=== PATIENT | female | born 1935 | race Caucasian/White ===

== ENCOUNTER 2016-05-29 12:06 | Observation (INO) | payer OTHER, MEDICARE ==
[~2016-05-29] VITALS: Ht 167.6 cm; Wt 89.8 kg
[~2016-05-29 12:06] MED LIST: CALCIUM GLUCON500 MG PO; CARDIZEM CD240 MG PO; CENTRUM SILVER1 TA1 PO; CEPHALEXIN500 M1 PO; DILTIAZEM HCL120 M2 PO; FERROUS SULFAT325 M3 PO; FLAGYL 25O MG250 M1 PO; FUROSEMIDE20 MG PO; KLOR-CON M1010 ME1 PO; LASIX40 M1 PO; LOPRESSOR100 M1 PO; MAG-OX 400400 MG PO; MAGNESIUM500 M2 PO; PERCOCET 325 MG1 TA2 PO; PROBIOTIC FORMU1 CAP PO; TEKTURNA HCT 151 TAB PO; TYLENOL TAB 32325 MG PO; VITAMIN D31000 UNI1 PO; XARELTO20 M2 PO
--- NOTE | 2016-05-29 12:27 | ED CARDIAC/CP/PALPITATIONS ---
History of Present Illness General Chief Complaint: Palpitations Stated Complaint: PALPATATIONS Source: patient, old records Exam Limitations: no limitations Vital Signs & Intake/Output Vital Signs & Intake/Output Vital Signs Date Time Temp Pulse Resp B/P Pulse O2 O2 Flow FiO2 Ox Delivery Rate 05/29 1430 96.3 05/29 1425 94 18 156/73 96 Room Air 05/29 1231 97 18 145/88 98 Room Air 05/29 1211 98.7 98 20 159/109 97 Room Air Reconcile Medications Cholecalciferol (Vitamin D3) 1,000 IU TAB 1 TAB PO DAILY SUPPLEMENT (Reported ) DILTIAZEM HCL (Cardizem Cd) 240 MG CAP.ER.24H 1 CAP PO DAILY A. FIB Ferrous Sulfate 325 MG (65 MG IRON) TABLET 1 TAB PO DAILY SUPPLEMENT ( Reported) Furosemide (Lasix) 40 MG TABLET 1 TAB PO DAILY ANKLE SWELLING (Reported) Magnesium Oxide 500 MG TABLET 1 TAB PO DAILY SUPPLEMENT (Reported) Metoprolol Tartrate 100 MG TABLET 1 TAB PO BID BP (Reported) OXYCODONE HCL/ACETAMINOPHEN (Percocet 5-325 MG Tablet) 325 MG/5 MG TAB 1-2 TAB PO Q4P PRN PAIN Potassium Chloride (Klor-Con M10) 10 MEQ TAB.ER.PRT 1 TAB PO DAILY SUPPLEMENT (Reported) Rivaroxaban (Xarelto) 20 MG TABLET 1 TAB PO QPM BLOOD THINNER (Reported) with food Triage Note: RECEIVED 81 YO FEMALE C/O FEELING TWINGES TO MID STERANL CHEST AREA. PT ALSO FEELS HEART IS BEATING FAST.PT WITH HX OF AFIB, HR 100 IN TRIAGE. SENSATION IS NOT PAIN, BUT NEVER FELT THIS FEELING OF TWINGES BEFORE. NO C/O SOB Triage Nurses Notes Reviewed? yes Onset: Abrupt Duration: intermittent Timing: multiple episodes today Quality/Severity: mild Location: substernal Radiation: no radiation Activities at Onset: none HPI: Patient is an 81-year-old female with a past medical history of diverticulitis status post perforation and Emily procedure correction with colostomy reversal performed remotely by Best Gonzales MD, hypertension, atrial fibrillation ON XARELTO who is compliant with her medications who presents emergency and that while at rest last night in bed at approximately 2300 she had acute onset of substernal chest intermittent discomfort which has come and gone which she states that it lasts for a few seconds but has been still occurring. Patient has never had symptoms like this in the past. Denies any fever, chills, hemoptysis shortness of breath cough leg swelling nausea vomiting abdominal pain back pain arm pain jaw pain diaphoresis. Patient has not taken any medications for symptoms. (SHUBHAM GUTIERREZ) Allergies Coded Allergies: NSAIDS (Non-Steroidal Anti-Inflamma ("SPOTTING" 05/29/16) Sulfa (Sulfonamide Antibiotics) (RASH 05/29/16) aspirin (SPOTTING 05/29/16) carbidopa (From Sinemet) (FACE SWELLS 05/29/16) gabapentin (UNKNOWN 05/29/16) levodopa (From Sinemet) (FACE SWELLS 05/29/16) (CATHY AHUJA MD) Past History Travel History Traveled to [place] past 21 day No Medical History Any Pertinent Medical History? see below for history Neurological: NONE EENT: NONE Cardiovascular: AFIB, hypertension Respiratory: NONE Gastrointestinal: GERD Hepatic: NONE Renal: NONE Musculoskeletal: NONE Psychiatric: NONE Endocrine: NONE History of MRSA: No History of VRE: No History of CDIFF: No Pneumonia Vaccine: 01/17/04 Influenza Vaccine: 12/17/13 Surgical History Surgical History: non-contributory Psychosocial History Who do you live with Patient/Self Services at Home None What is your primary language Greenlandic Tobacco Use: Never used Family History Family History, If Any: MOTHER, ; Cause: COPD (chronic obstructive pulmonary disease). FATHER, . Hx Contributory? No (SHUBHAM GUTIERREZ) Review of Systems Review of Systems Constitutional: Reports: no symptoms. EENTM: Reports: no symptoms. Respiratory: Reports: see HPI. Cardiovascular: Reports: see HPI, chest pain. GI: Reports: no symptoms. Genitourinary: Reports: no symptoms. Musculoskeletal: Reports: no symptoms. Skin: Reports: no symptoms. Neurological/Psychological: Reports: no symptoms. Hematologic/Endocrine: Reports: no symptoms. Immunologic/Allergic: Reports: no symptoms. All Other Systems: Reviewed and Negative (SHUBHAM GUTIERREZ) Physical Exam Physical Exam General Appearance: no apparent distress, alert Cardiovascular: irregularly irregular Comments: HEENT: Normal EENT exam, . Neck: Supple, no lymphadenopathy, normal range of motion without pain or tenderness Back: Nontender, no CVA tenderness. Respiratory: Chest nontender. No respiratory distress.breath sounds clear to auscultation bilaterally Abdomen: Soft, nontender nondistended, no appreciable organomegaly. Normal bowel sounds. No ascites Extremity: No edema, no calf tenderness to palpation, normal and equal pulses. Neuro: Alert oriented x3, motor sensory normal Skin: No appreciable rash on exposed skin, skin is warm and dry. Psych: Mood and affect is normal, memory and judgment is normal. Core Measures ACS in differential dx? Yes ASA ordered for poss ACS? Yes-ordered Severe Sepsis Present: No Septic Shock Present: No (ARPITA HAIR,SHUBHAM) Progress Differential Diagnosis: AMI, aortic dissection, atrial fibrillation, cholecystitis, CHF/pulm edema, hyperkalemia, hypovolemia, hyperthyroid, hyperventilation, intracranial hemorrhage, musculoskeletal pain, myocarditis, pancreatitis, pericarditis, pneumonia, pneumothorax, PSVT, pulmonary embolism, PUD/GERD, PVCs/PACs, respiratory failure, rib fracture, sepsis, unstable angina, V-fib/V-Tach, WPW syndrome Plan of Care: Orders Procedure Date/time Status EKG 05/30 2200 Active CBC WITHOUT DIFFERENTIAL 05/30 0600 Active BASIC ELECTROLYTES PLUS BUN&CR 05/30 0600 Active Heart Healthy Diet 05/29 D Active TROPONIN LEVEL 05/29 1553 Active Pathway - chart 05/29 1545 Active Patient Data 05/29 1545 Active TROPONIN LEVEL 05/29 1545 Active Patient Data 05/[address] in observation 05/29 1509 Active Patient Data 05/29 1509 Active OXYGEN SETUP (GEN) 05/29 1428 Active Saline Lock 05/[address] in observation 05/29 1428 Active Vital Signs 05/29 1428 Active Activity/Ambulation 05/29 1428 Active Code Status 05/29 1428 Active Telemetry/Tissue Technician 05/29 1239 Active TROPONIN LEVEL 05/29 1239 Complete MAGNESIUM 05/29 1239 Complete D-DIMER 05/29 1239 Complete COMPREHENSIVE METABOLIC PANEL 05/29 1239 Complete CBC WITHOUT DIFFERENTIAL 05/29 1239 Complete EKG 05/29 1215 Active Saline Lock 05/29 UNK Active Pathway - chart 05/29 UNK Active House Staff 05/29 UNK Active ACS Core Measures 05/29 UNK Active Weight 05/29 UNK Active VTE Mechanical Prophylaxis 05/29 UNK Active Vital Signs 05/29 UNK Active Telemetry/Tissue Technician 05/29 UNK Active Intake & Output 05/29 UNK Active EKG 05/29 UNK Active ECHOCARDIOGRAM 05/29 UNK Active Current Medications Sig/Danisha Start time Last Medication Dose Stop Time Status Admin Multivitamins 1 TAB DAILY 05/30 1000 AC (Theragran Vitamins) Laboratory Tests 05/29/16 1252: Anion Gap 12, Estimated GFR > 60, BUN/Creatinine Ratio 18.6, Glucose 112 H, Calcium 9.8, Magnesium 1.8, Total Bilirubin 0.6, AST 22, ALT 34, Alkaline Phosphatase 117, Troponin I < 0.01, Total Protein 7.4, Albumin 4.3, Globulin 3.1 , Albumin/Globulin Ratio 1.4, D-Dimer < 200, CBC w Diff NO MAN DIFF REQ, RBC 5.03, MCV 91.6, MCH 30.6, RDW 12.9, MPV 7.6, Gran % 81.0 H, Lymphocytes % 11.2 L, Monocytes % 6.6, Eosinophils % 0.8, Basophils % 0.4, Absolute Granulocytes 9.0 H, Absolute Lymphocytes 1.2, Absolute Monocytes 0.7 H, Absolute Eosinophils 0.1, Absolute Basophils 0, PUBS MCHC 33.5 Patient currently is in no apparent distress environmental monitoring technician noted patient to be atrial fibrillation between 85 bpm and 115 bpm. Patient had initial troponin negative EKG noted atrial fibrillation 86 bpm and d-dimer was negative essentially ruling out pulmonary embolism. Patient does state that she has improvement of her symptoms however she still has this sensation in her chest "not feeling right" Discussed patient with Dr. Yanes who advised patient to be admitted to telemetry observation for rule out ACS He also advised patient to be administered aspirin Case management discussed with me that approval for observation to telemetry for rule out ACS for this patient (ARPITA HAIR,SHUBHAM) Diagnostic Imaging: Viewed by Me: Radiology Read. CXR Impression: no acute abnormality, no infiltrates Initial ED EKG: atrial fibrillation 86 bpm Prior EKG: unchanged Comments: PATIENT: BARBARA HAYNES PRESENT AGE: 81 PATIENT ACCOUNT NO: [id number] : 36 LOCATION: [facility] ORDERING PHYSICIAN: SHUBHAM HAIR SERVICE DATE: 05/29/16 EXAM TYPE: RAD - XRY-CHEST XRAY, PA AND LATERAL EXAMINATION: CHEST 2 VIEWS CLINICAL INFORMATION: Chest pain. COMPARISON: 08/23/2014. TECHNIQUE: PA and lateral views of the chest were obtained. FINDINGS: The cardiac silhouette is stable. The mediastinal and hilar contours are unremarkable. There are neither pleural effusions nor pneumothoraces. There are no consolidations. The osseous structures are unremarkable. IMPRESSION: No evidence for acute disease. (SHUBHAM GUTIERREZ) Departure Departure Disposition: STILL A PATIENT Condition: Guarded Clinical Impression Primary Impression: Angina at rest Referrals: REVA SCHMITT,KRZYSZTOF Zamarripa (PCP/Family) Departure Forms: Customer Survey General Discharge Information Observation Note Spoke With: STEPHANIE YANES MD Physician Advisor Notified: JAKUB SCHMITT,ROLANDO Sanchez Place Patient In: Non-ED OBS Care Area Rationale for Observation: My rational for observation is as follows [discussed patient with Dr. Yanes who agrees with telemetry observation for concerns of angina in which patient requires cardiology consultation, repeat labs, repeat cardiac enzymes repeat EKG , telemetry monitoring. Outpatient treatment at this time due to's significant past cardiac history would be medically harmful at this time]. (SHUBHAM GUTIERREZ) PA/DRUG AND ALCOHOL COUNSELLOR Co-Sign Statement Statement: ED Attending supervision documentation- x I saw and evaluated the patient. I have also reviewed all the pertinent lab results and diagnostic results. I agree with the findings and the plan of care as documented in the PA's/DRUG AND ALCOHOL COUNSELLOR's documentation. [] I have reviewed the ED Record and agree with the PA's/DRUG AND ALCOHOL COUNSELLOR's documentation. [] Additions or exceptions (if any) to the PAs/DRUG AND ALCOHOL COUNSELLOR's note and plan are summarized below: [] (LEIGHA SCHMITT,CATHY) Critical Care Note Critical Care Note Critical Care Time: 30-74 min (SHUBHAM GUTIERREZ)
[2016-05-29 13:05] LABS: ABSOLUTE BASOPHIL COUNT 0 /CUMM (0.0-0.2); ABSOLUTE EOSINOPHIL COUNT 0.1 /CUMM (0.0-0.7); ABSOLUTE LYMPH COUNT 1.2 /CUMM (1.2-3.4); ABSOLUTE MONOCYTE COUNT 0.7 /CUMM (0.10-0.60); BASOPHIL % 0.4 % (0.0-2.0); EOSINOPHIL % 0.8 % (0-5); MEAN CORPUSCULAR HGB 30.6 PG (27.0-31.0); MEAN CORPUSCULAR HGB CONC 33.5 G/DL (33.0-37.0); MEAN CORPUSCULAR VOLUME 91.6 FL (81.0-99.0); MEAN PLATELET VOLUME 7.6 FL (7.4-10.4); PLATELET COUNT 302 /CUMM (130-400); RBC DISTRIBUTION WIDTH 12.9 % (11.5-14.5); RED BLOOD CELL CT 5.03 /CUMM (4.20-5.40); WHITE BLOOD CELL COUNT 11.1 /CUMM (4.8-10.8)
--- NOTE | 2016-05-29 13:34 | RADIOLOGY REPORT ---
EXAMINATION: CHEST 2 VIEWS CLINICAL INFORMATION: Chest pain. COMPARISON: 08/23/2014. TECHNIQUE: PA and lateral views of the chest were obtained. FINDINGS: The cardiac silhouette is stable. The mediastinal and hilar contours are unremarkable. There are neither pleural effusions nor pneumothoraces. There are no consolidations. The osseous structures are unremarkable. IMPRESSION: No evidence for acute disease.
--- NOTE | 2016-05-29 15:38 | History & Physical ---
HAYDEE PERSAUD 05/29/16 1537: General Information and HPI MD Statement: I have seen and personally examined BARBARA HAYNES and documented this H&P. The patient is a 81 year old F who presented with a patient stated chief complaint of [CHEST PAIN]. Source of Information: patient Exam Limitations: no limitations History of Present Illness: This is a 81-year-old female with past medical history of hypertension, atrial fibrillation on Xarelto and metoprolol for rate control, gastroesophageal reflux disease came in with chief complaint of twinges to midsternal chest area. She describes that she was feeling her heart was beating very fast, this was abrupt in onset, intermittent and she had multiple similar episodes prior to admission today. She denied any chest pressure, shortness of breath, paroxysmal nocturnal dyspnea, thyroid dysfunction, intolerance to heat or cold, lower extremity edema , weakness, headache, diarrhea, constipation. At baseline, she is generally healthy, lives by herself, daughter and son live nearby, she does all her activities of living by herself,, shops, uses a cane to walk. She does not have any significant cardiac history. She follows up regularly with Dr. Yanes as outpatient. Allergies/Medications Allergies: Coded Allergies: NSAIDS (Non-Steroidal Anti-Inflamma ("SPOTTING" 05/29/16) Sulfa (Sulfonamide Antibiotics) (RASH 05/29/16) aspirin (SPOTTING 05/29/16) carbidopa (From Sinemet) (FACE SWELLS 05/29/16) gabapentin (UNKNOWN PER PT 05/29/16) levodopa (From Sinemet) (FACE SWELLS 05/29/16) Home Med list Cholecalciferol (Vitamin D3) (Vitamin D3) 1,000 UNIT CAPSULE 1 CAP PO DAILY SUPPLEMENT (Reported) Cyclobenzaprine HCl 5 MG TABLET 1 TAB PO QPM MUSCLE SPASMS (Reported) Diclofenac Sodium (Voltaren) 1 % GEL..GRAM. 2 GM TOP 4 TIMES/DAY PRN BACK PAIN /KNEE PAIN (Reported) apply to affected area(s) Diltiazem HCl (Cardizem Cd) 240 MG CAP.ER.24H 1 CAP PO DAILY A FIB (Reported) Esomeprazole Magnesium (Nexium) 20 MG CAPSULE.DR 1 CAP PO DAILY GI (Reported) Ferrous Sulfate 325 MG (65 MG IRON) TABLET 1 TAB PO DAILY SUPPLEMENT ( Reported) Furosemide (Lasix) 40 MG TABLET 0.5 TAB PO BID DIURETIC (Reported) Magnesium Oxide (Magnesium) 500 MG CAPSULE 1 CAP PO DAILY SUPPLEMENT ( Reported) Metoprolol Tartrate (Lopressor) 100 MG TABLET 1 TAB PO BID BP (Reported) Potassium Chloride (Klor-Con M10) 10 MEQ TAB.ER.PRT 1 TAB PO DAILY SUPPLEMENT (Reported) Rivaroxaban (Xarelto) 20 MG TABLET 1 TAB PO QPM BLOOD THINNER (Reported) with food Compliance With Home Meds: GOOD Past History Travel History Traveled to [place] past 21 day No Medical History Neurological: NONE EENT: NONE Cardiovascular: AFIB, hypertension Respiratory: NONE Gastrointestinal: GERD Hepatic: NONE Renal: NONE Musculoskeletal: NONE Psychiatric: NONE Endocrine: NONE History of MRSA: No History of VRE: No History of CDIFF: No Pneumonia Vaccine: 01/17/04 Influenza Vaccine: 12/17/13 Surgical History Surgical History: non-contributory Past Family/Social History Family History Relations & Conditions if any MOTHER, ; Cause: COPD (chronic obstructive pulmonary disease). FATHER, . Psychosocial History Where do you live? Home Services at Home: None Primary Language: Libyan Smoking Status: Never Smoked ETOH Use: occasional use Illicit Drug Use: denies illicit drug use Living Will? yes Functional Ability ADLs Independent: dressing, eating, toileting, bathing. Ambulation: cane IADLs Independent: shopping, housework, finances, food prep, telephone, transportation , medication admin. Employment History Employment Retired Review of Systems Review of Systems Constitutional: Denies: chills, diaphoresis, fever, malaise, weakness, unexplained weight loss. EENTM: Denies: blurred vision, double vision, visual changes, eye pain. Cardiovascular: Reports: palpitations. Denies: chest pain, edema, orthopena, peripheral edema, syncope. Respiratory: Denies: cough, hemoptysis, orthopnea, short of breath. GI: Denies: abdominal pain, bloating, constipation, diarrhea. Genitourinary: Denies: discharge, dysuria, frequency, hematuria. Musculoskeletal: Denies: back pain, gout, joint pain, joint swelling. Skin: Reports: no symptoms. Neurological/Psychological: Reports: no symptoms. Hematologic/Endocrine: Reports: no symptoms. Immunologic/Allergic: Reports: no symptoms. All Other Systems: Reviewed and Negative Exam & Diagnostic Data Last 24 Hrs of Vital Signs/I&O Vital Signs Date Time Temp Pulse Resp B/P Pulse O2 O2 Flow FiO2 Ox Delivery Rate 05/29 1430 96.3 05/29 1425 94 18 156/73 96 Room Air 05/29 1231 97 18 145/88 98 Room Air 05/29 1211 98.7 98 20 159/109 97 Room Air Intake & Output 05/29 1600 05/29 0800 05/29 0000 Intake Total Output Total Balance Patient 88.451 kg Weight Physical Exam General Appearance Alert, Oriented X3, Cooperative, No Acute Distress Skin No Rashes, No Breakdown, No Significant Lesion HEENT Atraumatic, PERRLA, EOMI Neck Supple, No JVD Lymphatic no lad Cardiovascular irregular irregular Lungs Clear to Auscultation, Normal Air Movement Abdomen Normal Bowel Sounds, Soft, No Tenderness Neurological Normal Speech, Strength at 5/5 X4 Ext, Normal Tone, Sensation Intact, Cranial Nerves 3-12 NL Extremities No Clubbing, No Cyanosis, No Edema, Normal Pulses Vascular Normal Pulses Last 24 Hrs of Labs/Bebo: Laboratory Tests 05/29/16 1607: Troponin I < 0.01 05/29/16 1252: Anion Gap 12, Estimated GFR > 60, BUN/Creatinine Ratio 18.6, Glucose 112 H, Calcium 9.8, Magnesium 1.8, Total Bilirubin 0.6, AST 22, ALT 34, Alkaline Phosphatase 117, Troponin I < 0.01, Total Protein 7.4, Albumin 4.3, Globulin 3.1 , Albumin/Globulin Ratio 1.4, D-Dimer < 200, CBC w Diff NO MAN DIFF REQ, RBC 5.03, MCV 91.6, MCH 30.6, RDW 12.9, MPV 7.6, Gran % 81.0 H, Lymphocytes % 11.2 L, Monocytes % 6.6, Eosinophils % 0.8, Basophils % 0.4, Absolute Granulocytes 9.0 H, Absolute Lymphocytes 1.2, Absolute Monocytes 0.7 H, Absolute Eosinophils 0.1, Absolute Basophils 0, PUBS MCHC 33.5 Diagnostic Data EKG Results Rate of 86, atrial fibrillation, multiple premature complexes, normal axis, no acute ST-T wave changes, QTC of 440. CXR Results IMPRESSION: No evidence for acute disease. Assessment/Plan Assessment: This is a 81-year-old female with past medical history of hypertension, atrial fibrillation on Xarelto and metoprolol for rate control, gastroesophageal reflux disease came in with chief complaint of twinges to midsternal chest area, along with racing of the heart, or blood in onset, intermittent, midsternal area. Vitals on admission 96.3/24/18/156/73/96% on room air. Count of 11.1, H/H of 15.4/46.0, platelet of 302. Electrolytes within normal limits. BUN/creatinine 13/0.7. Glucose of 112, magnesium of 9.8, LFTs within normal limit, was sent of troponin was negative less than 0.01, d-dimer less than 200. Chest x-ray did not show any acute cardiopulmonary changes. Last echo was 02/05/2014 which showed mild LVH, EF of greater than 60%, no obvious wall motion abnormalities, mild elevated agitation, mild TR, mild OH, small pericardial effusions. We'll admit the patient to telemetry floor for control of atrial fibrillation along with ruling out for acute coronary syndrome. Current list along with assessment and plan Problem #1 rule out acute coronary syndrome. * Continue to monitor vitals every shift. * Continue trending troponins and EKG. * First set of troponin was negative. * Patient received aspirin stat to 25 mg in the ER. * Continue low-dose aspirin. * Continue to monitor on telemetry. * Caridology on board. #2 Atrial fibrillation * continue rate control with metoprolol. * Continue Xarelto for anticoagulation. #3 GERD * Ct nexium #4 HTN * Ct diltiazem. #5 constipation * PRN colace / miralax Continue Lasix which is home medication. FC DVT PX : xorelto Mild, mod and severe PP ordered. As Ranked By This Provider Problem List: 1. Atrial fibrillation and flutter 2. Benign hypertension 3. Constipation Core Measures/Miscellaneous Acute Coronary Syndrome ACS Diagnosis: No Cerebrovascular Accident CVA/TIA Diagnosis: No Congestive Heart Failure CHF Diagnosis: No Venous Thromboembolism VTE Risk Factors: Age > 40 VTE Prophylaxis Ordered Inpt: Pharm- Xarelto No Mech VTE prophylaxis d/t: No contraindications No VTE Pharm Prophylaxis d/t: No contraindications VTE Diagnosis: No VTE Type: NONE VTE Confirmed by (Test): NONE Severe Sepsis Severe Sepsis Present: No Septic Shock Septic Shock Present: No Miscellaneous Documentation Attending Case Discussed With: STEPHANIE YANES MD Primary Care Physician: KRZYSZTOF ARDON MD Patient sees these Specialists dr yanes Level of Patient Care: Telemetry STEPHANIE YANES MD 05/29/16 2137: Attending Review Statement Attending Statement Attending MD Statement: examined this patient, discuss w/resident/PA/JAVA DEVELOPMENT MANAGER, agreed w/resident/PA/JAVA DEVELOPMENT MANAGER, discussed with family, reviewed EMR data (avail), discussed with nursing, reviewed images, amended to note Attending Assessment/Plan: Agree with housestaff note above. Patient seen and examined independently. The patient is an 81-year-old female with history of hypertension, atrial fibrillation, and metoprolol who presents with complaint of sharp pains in the substernal chest area. She also notes A sensation of her heart racing. No shortness of breath. No diaphoresis. No syncope. No lightheadedness or dizziness. No nausea or vomiting. Review of systems: No rash. No tremor. No melena. No syncope. All other systems are reviewed and are noted to be negative. Gen: The patient is in no acute distress HEENT: Normal nose, ears, and oropharynx. Pupils equal bilaterally. Conjunctiva normal. Neck: Supple with no JVD, no masses, and no thyromegaly Lungs: Clear to auscultation with normal respiratory effort Heart: Irregularly irregular, S1, S2, 1/6 systolic murmur. No peripheral edema , 2+ pulses in the lower extremities bilaterally Abdomen: Soft, nontender, no masses. No hepatomegaly. No splenomegaly Extremities: No clubbing or cyanosis. Normal muscle strength in the upper and lower extremities. Skin: Normal skin turgor with no skin ulcers or lesions noted. Neuro: Cranial nerves intact. Sensation intact Psych: Alert and oriented 3 with appropriate affect labs: 05/29/16 1607: Troponin I < 0.01 05/29/16 1553: Troponin I Cancelled 05/29/16 1252: Anion Gap 12, Estimated GFR > 60, BUN/Creatinine Ratio 18.6, Glucose 112 H, Calcium 9.8, Magnesium 1.8, Total Bilirubin 0.6, AST 22, ALT 34, Alkaline Phosphatase 117, Troponin I < 0.01, Total Protein 7.4, Albumin 4.3, Globulin 3.1 , Albumin/Globulin Ratio 1.4, D-Dimer < 200, CBC w Diff NO MAN DIFF REQ, RBC 5.03, MCV 91.6, MCH 30.6, RDW 12.9, MPV 7.6, Gran % 81.0 H, Lymphocytes % 11.2 L, Monocytes % 6.6, Eosinophils % 0.8, Basophils % 0.4, Absolute Granulocytes 9.0 H, Absolute Lymphocytes 1.2, Absolute Monocytes 0.7 H, Absolute Eosinophils 0.1, Absolute Basophils 0, PUBS MCHC 33.5 Chest x-ray: No evidence of acute cardiac or pulmonary disease EKG tracing is independently reviewed, and reveals atrial fibrillation with ventricular response of 86, premature ventricular complexes, nonspecific ST-T abnormality Assessment: 1. Chronic atrial fibrillation 2. Chronic HFpEF, stable 3. Hypertension, controlled 4. History of small pericardial effusion 5. Chest discomfort, atypical. Rule out for myocardial infarction 6. bacteriology technician reveals atrial fibrillation with no other shift in arrhythmias Plan: * Monitor on telemetry. * Aspirin. * Continue outpatient medications. * Check serial troponin to rule out myocardial infarction.
[2016-05-29] MEDS ORDERED: CARDIZEM CD240 M1 PO (17:22)
[2016-05-29] MEDS ORDERED: VOLTAREN100 GM TOP (17:25)
[2016-05-29] MEDS ORDERED: NEXIUM20 M1 PO (17:25)
[2016-05-29] MEDS ORDERED: CYCLOBENZAPRINE5 M2 PO (17:26)
[2016-05-29 18:16] VITALS: BP 142/90
[2016-05-30 00:30] VITALS: BP 112/80
[2016-05-30 04:23] LABS: ABSOLUTE BASOPHIL COUNT 0 /CUMM (0.0-0.2); ABSOLUTE EOSINOPHIL COUNT 0.2 /CUMM (0.0-0.7); ABSOLUTE GRANULOCYTE CT 6.1 /CUMM (1.4-6.5); ABSOLUTE LYMPH COUNT 2.4 /CUMM (1.2-3.4); ABSOLUTE MONOCYTE COUNT 0.9 /CUMM (0.10-0.60); BASOPHIL % 0.3 % (0.0-2.0); EOSINOPHIL % 2.6 % (0-5); GRANULOCYTE % 63.6 % (42.2-75.2); HEMATOCRIT 43.4 % (37-47); MEAN CORPUSCULAR HGB 31.1 PG (27.0-31.0); MEAN CORPUSCULAR HGB CONC 33.8 G/DL (33.0-37.0); MEAN CORPUSCULAR VOLUME 92.1 FL (81.0-99.0); MEAN PLATELET VOLUME 7.8 FL (7.4-10.4); PLATELET COUNT 272 /CUMM (130-400); RED BLOOD CELL CT 4.72 /CUMM (4.20-5.40); WHITE BLOOD CELL COUNT 9.6 /CUMM (4.8-10.8)
[2016-05-30 08:37] VITALS: BP 142/90
--- NOTE | 2016-05-30 09:29 | PN- Housestaff ---
Subjective Follow-up For: Chest discomfort Complaints: no complaints Tele-Events Since Last Visit: Yumiko Subjective: No shortness of breath or chest pain overnight Oxygen saturation of 95-96% on room air Review of Systems Constitutional: Denies: chills, fever. EENTM: Denies: visual changes. Cardiovascular: Denies: chest pain, palpitations. Respiratory: Denies: short of breath. Gastrointestinal: Denies: abdominal pain. Musculoskeletal: Denies: back pain. Objective Last 24 Hrs of Vital Signs/I&O Vital Signs Date Time Temp Pulse Resp B/P Pulse O2 O2 Flow FiO2 Ox Delivery Rate 05/30 0837 98.2 85 18 142/90 96 Room Air 05/30 0030 98.0 80 20 112/80 95 Room Air 05/29 2211 95 148/96 05/29 1816 98.2 71 18 142/90 96 Room Air 05/29 1725 99 Room Air 05/29 1626 95.2 98 18 169/78 96 Room Air 05/29 1606 104 05/29 1430 96.3 05/29 1425 94 18 156/73 96 Room Air 05/29 1231 97 18 145/88 98 Room Air 05/29 1211 98.7 98 20 159/109 97 Room Air Intake & Output 05/30 1600 05/30 0800 05/30 0000 Intake Total 120 360 Output Total 300 Balance 120 60 Intake, IV 10 Intake, Oral 120 350 Number 0 Bowel Movements Output, Urine 300 Patient 198 lb 195 lb Weight Physical Exam General Appearance: Alert, Oriented X3, Cooperative, No Acute Distress Skin: No Rashes Neck: No JVD Cardiovascular: Irregular Lungs: Clear to Auscultation, Normal Air Movement Abdomen: Normal Bowel Sounds, Soft, No Tenderness Extremities: No Edema Current Medications: Current Medications Sig/Danisha Start time Last Medication Dose Route Stop Time Status Admin Aspirin 81 MG DAILY 05/30 1000 AC PO Aspirin 0 .STK-MED ONE 05/29 1437 DC PO Aspirin 325 MG ONCE ONE 05/29 1415 DC 05/29 PO 05/29 1416 1440 Cholecalciferol 1,000 IU DAILY 05/30 1000 AC PO Diclofenac Sodium 1 MINO 4 TIMES/DAY PRN 05/29 2199 AC TOP Diltiazem HCl 240 MG DAILY 05/30 1000 AC PO Furosemide 20 MG BID 05/30 1000 AC PO Furosemide 20 MG BID 05/29 2199 DC 05/29 PO 2210 Furosemide 20 MG .STK-MED ONE 05/29 2158 DC PO 05/29 2199 Magnesium Oxide 400 MG DAILY 05/30 1000 AC PO Metoprolol Tartrate 100 MG BID 05/29 2199 AC 05/29 PO 221 Multivitamins 1 TAB DAILY 05/30 1000 AC PO Omeprazole 40 MG DAILY AC 05/30 0700 AC 05/30 PO 0645 Rivaroxaban 20 MG 1700 05/29 2199 AC 05/29 PO 220 Last 24 Hrs of Lab/Bebo Results Last 24 Hrs of Labs/Mics: Laboratory Tests 05/30/16 0400: Troponin I < 0.01 05/30/16 0400: Anion Gap 9, Estimated GFR > 60, BUN/Creatinine Ratio 25.7 H, CBC w Diff NO MAN DIFF REQ, RBC 4.72, MCV 92.1, MCH 31.1 H, RDW 13.0, MPV 7.8, Gran % 63.6, Lymphocytes % 24.6, Monocytes % 8.9, Eosinophils % 2.6, Basophils % 0.3, Absolute Granulocytes 6.1, Absolute Lymphocytes 2.4, Absolute Monocytes 0.9 H, Absolute Eosinophils 0.2, Absolute Basophils 0, PUBS MCHC 33.8 05/29/16 2210: Troponin I < 0.01 05/29/16 1607: Troponin I < 0.01 05/29/16 1553: Troponin I Cancelled 05/29/16 1252: Anion Gap 12, Estimated GFR > 60, BUN/Creatinine Ratio 18.6, Glucose 112 H, Calcium 9.8, Magnesium 1.8, Total Bilirubin 0.6, AST 22, ALT 34, Alkaline Phosphatase 117, Troponin I < 0.01, Total Protein 7.4, Albumin 4.3, Globulin 3.1 , Albumin/Globulin Ratio 1.4, D-Dimer < 200, CBC w Diff NO MAN DIFF REQ, RBC 5.03, MCV 91.6, MCH 30.6, RDW 12.9, MPV 7.6, Gran % 81.0 H, Lymphocytes % 11.2 L, Monocytes % 6.6, Eosinophils % 0.8, Basophils % 0.4, Absolute Granulocytes 9.0 H, Absolute Lymphocytes 1.2, Absolute Monocytes 0.7 H, Absolute Eosinophils 0.1, Absolute Basophils 0, PUBS MCHC 33.5 Lines/Diet/Fluids Fluids/Infusions: none Lines: peripheral lines Restraints: none Assessment/Plan Assessment: 81-year-old female with past medical history of hypertension, atrial fibrillation on Xarelto and metoprolol for rate control, gastroesophageal reflux disease came in with chief complaint of twinges to midsternal chest area, along with racing of the heart, or blood in onset, intermittent, midsternal area. Vitals on admission 96.3/24/18/156/73/96% on room air. Count of 11.1, H/H of 15.4/46.0, platelet of 302. Electrolytes within normal limits. BUN/creatinine 13/0.7. Glucose of 112, magnesium of 9.8, LFTs within normal limit, was sent of troponin was negative less than 0.01, d-dimer less than 200. Chest x-ray did not show any acute cardiopulmonary changes Last echo was 02/05/2014 which showed mild LVH, EF of greater than 60%, no obvious wall motion abnormalities, mild elevated agitation, mild TR, mild SD, small pericardial effusions. Rule out acute coronary syndrome Continue to monitor vitals every shift. 3 sets of troponins negative and no acute EKG changes No evidence of volume overload and chest x-ray, although proBNP was slightly high Patient takes 40 mg of Lasix every day for peripheral edema Patient is on low-dose aspirin. Continue to monitor on telemetry. Patient recently has his lipid panel checked in April 2016 Patient is currently not on any lipid lowering medication Caridoly on board. Atrial fibrillation Currently rate controlled with metoprolol and calcium channel leonor Continue Xarelto for anticoagulation. GERD Past medical history of chest gastroesophageal reflux disease Patient is currently on omeprazole Long-term continuation of omeprazole should be with caution HTN Patient has past medical history of hypertension Well-controlled Continue beta leonor and pressure channel leonor DVT PX xarelto FC Problem List: 1. Atrial fibrillation and flutter 2. Full code status 3. Benign hypertension Pain Ratin Pain Location: NA Pain Goal: Pain 4 or less Pain Plan: NA Tomorrow's Labs & Rationales: NA DVT/Prophylaxis: pharmacological
[2016-05-30 09:36] VITALS: BP 150/78
--- NOTE | 2016-05-30 10:32 | Patient Discharge Instructions ---
Discharge Instructions General Discharge Information You were seen/treated for: Chest discomfort You had these procedures: None Special Instructions: Follow-up with icing coater Dr. Moore in a week after discharge. Follow-up with primary care doctor in a week after discharge. Return to emergency department if you experience any sudden acute chest pain or shortness of breath Diet Continue normal diet: Yes Recommended Diet: Heart Healthy Activity Full Activity/No Limits: Yes Acute Coronary Syndrome Inclusion Criteria At DC or during hospital stay patient has or had the following: ACS DIAGNOSIS No Discharge Core Measures Meds if any: Prescribed or Continued at Discharge Meds if any: NOT Prescribed or Continued at Discharge Congestive Heart Failure Inclusion Criteria At DC or during hospital stay patient has or had the following: CHF DIAGNOSIS No Discharge Core Measures Meds if any: Prescribed or Continued at Discharge Meds if any: NOT Prescribed or Continued at Discharge Cerebrovascular accident Inclusion Criteria At DC or during hospital stay patient has or had the following: CVA/TIA Diagnosis No Discharge Core Measures Meds if any: Prescribed or Continued at Discharge Meds if any: NOT Prescribed or Continued at Discharge Venous thromboembolism Inclusion Criteria VTE Diagnosis No VTE Type NONE VTE Confirmed by (Test) NONE Discharge Core Measures - Per Current guidelines, there needs to be overlap - treatment for the first 5 days of Warfarin therapy. - If discharged on Warfarin prior to 5 days of - overlap therapy, the patient will need to be - assessed for post discharge needs including - *Post discharge parental anticoagulation - *Warfarin and/or parental anticoagulation education - *Follow up date to check INR post discharge At least 5 days overlap therapy as Inpatient No Meds if any: Prescribed or Continued at Discharge Note: Overlap Therapy is Warfarin and Anticoagulant Meds if any: NOT Prescribed or Continued at Discharge
--- NOTE | 2016-05-30 10:55 | PN- Cardiology ---
Subjective Subjective: The patient reports that she is feeling better. No further chest discomfort. No palpitations. No short of breath. No diaphoresis. No lightheadedness or dizziness. No nausea or vomiting. Objective Vital Signs and I&Os Vital Signs Date Time Temp Pulse Resp B/P Pulse O2 O2 Flow FiO2 Ox Delivery Rate 05/30 0936 90 150/78 05/30 0837 98.2 85 18 142/90 96 Room Air 05/30 0030 98.0 80 20 112/80 95 Room Air 05/29 2211 95 148/96 05/29 1816 98.2 71 18 142/90 96 Room Air 05/29 1725 99 Room Air 05/29 1626 95.2 98 18 169/78 96 Room Air 05/29 1606 104 05/29 1430 96.3 05/29 1425 94 18 156/73 96 Room Air 05/29 1231 97 18 145/88 98 Room Air 05/29 1211 98.7 98 20 159/109 97 Room Air Intake & Output 05/30 1600 05/30 0800 05/30 0000 05/29 1600 05/29 0800 05/29 0000 Intake Total 120 360 Output Total 300 Balance 120 60 Intake, IV 10 Intake, Oral 120 350 Number 0 Bowel Movements Output, Urine 300 Patient 198 lb 195 lb 195 lb Weight Physical Exam: Gen: NAD HEENT: normal Lungs: clear to auscultation, normal resp. effort Heart: Irregularly irregular, S1, S2, 1/6 systolic murmur Abdomen: Soft, nontender, no masses Extremities: No clubbing, cyanosis, or edema. Neuro: Alert and oriented x 3, cranial nerves intact Current Medications: Current Medications Sig/Danisha Start time Last Medication Dose Route Stop Time Status Admin Aspirin 81 MG DAILY 05/30 1000 AC 05/30 PO 937 Aspirin 0 .STK-MED ONE 05/29 1437 DC PO Aspirin 325 MG ONCE ONE 05/29 1415 DC 05/29 PO 05/29 1416 1440 Cholecalciferol 1,000 IU DAILY 05/30 1000 AC 05/30 PO 937 Diclofenac Sodium 1 MINO 4 TIMES/DAY PRN 05/29 2199 AC TOP Diltiazem HCl 240 MG DAILY 05/30 1000 AC 05/30 PO 935 Furosemide 20 MG BID 05/30 1000 AC 05/30 PO 935 Furosemide 20 MG BID 05/29 2199 DC 05/29 PO 221 Furosemide 20 MG .STK-MED ONE 05/29 2158 DC PO 05/29 2199 Magnesium Oxide 400 MG DAILY 05/30 1000 AC 05/30 PO 09 Metoprolol Tartrate 100 MG BID 05/29 2199 AC 05/30 PO 0936 Multivitamins 1 TAB DAILY 05/30 1000 AC 05/30 PO 0938 Omeprazole 40 MG DAILY AC 05/30 0700 AC 05/30 PO 0645 Rivaroxaban 20 MG 1700 05/29 2199 AC 05/29 PO 220 Results Last 48 Hrs of Labs/Mics: Laboratory Tests 05/30/16 0400: Troponin I < 0.01 05/30/16 0400: Anion Gap 9, Estimated GFR > 60, BUN/Creatinine Ratio 25.7 H, CBC w Diff NO MAN DIFF REQ, RBC 4.72, MCV 92.1, MCH 31.1 H, RDW 13.0, MPV 7.8, Gran % 63.6, Lymphocytes % 24.6, Monocytes % 8.9, Eosinophils % 2.6, Basophils % 0.3, Absolute Granulocytes 6.1, Absolute Lymphocytes 2.4, Absolute Monocytes 0.9 H, Absolute Eosinophils 0.2, Absolute Basophils 0, PUBS MCHC 33.8 05/29/16 2210: Troponin I < 0.01 05/29/16 1607: Troponin I < 0.01 05/29/16 1553: Troponin I Cancelled 05/29/16 1252: Anion Gap 12, Estimated GFR > 60, BUN/Creatinine Ratio 18.6, Glucose 112 H, Calcium 9.8, Magnesium 1.8, Total Bilirubin 0.6, AST 22, ALT 34, Alkaline Phosphatase 117, Troponin I < 0.01, Total Protein 7.4, Albumin 4.3, Globulin 3.1 , Albumin/Globulin Ratio 1.4, D-Dimer < 200, CBC w Diff NO MAN DIFF REQ, RBC 5.03, MCV 91.6, MCH 30.6, RDW 12.9, MPV 7.6, Gran % 81.0 H, Lymphocytes % 11.2 L, Monocytes % 6.6, Eosinophils % 0.8, Basophils % 0.4, Absolute Granulocytes 9.0 H, Absolute Lymphocytes 1.2, Absolute Monocytes 0.7 H, Absolute Eosinophils 0.1, Absolute Basophils 0, PUBS MCHC 33.5 Assessment/Plan Assessment/Plan Assessment: 1. Chronic atrial fibrillation 2. Chronic HFpEF, stable 3. Hypertension, controlled 4. History of small pericardial effusion 5. Chest discomfort, atypical. Rule out for myocardial infarction 6. 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 * Continue prior cardiac medications. * Echocardiogram and pharmacologic nuclear stress test as an outpatient. * Follow up in the office after testing. Continue telemetry? No
== END 2016-05-30 13:00 ==
LOC: ENRESERVDT → ENRESERVTM → ERH 12:06 → ENPENDDIS 14:28 → ERHI 14:28 → 1NO 18:00
PROVIDERS: Internal Medicine; Physician Assistant; ADMIT Internal Medicine
DX: I48.91 Unspecified atrial fibrillation (principal); Z79.01 Long term (current) use of anticoagulants; I50.9 Heart failure, unspecified; I10 Essential (primary) hypertension; K21.9 Gastro-esophageal reflux disease without esophagitis; K59.00 Constipation, unspecified; I48.92 Unspecified atrial flutter
CPT/HCPCS: 2000; 6020; 82436; 93005; 93010; G0378; J3490

== ENCOUNTER 2016-10-13 09:39 | Emergency (ER) | payer OTHER, MEDICARE ==
[~2016-10-13] VITALS: Ht 167.6 cm; Wt 90.7 kg
[~2016-10-13 09:39] MED LIST changes: +CARDIZEM CD240 M1 PO; +CYCLOBENZAPRINE5 M2 PO; +NEXIUM20 M1 PO; +VOLTAREN100 GM TOP
--- NOTE | 2016-10-13 09:50 | ED CARDIAC/CP/PALPITATIONS ---
History of Present Illness General Chief Complaint: General Adult Stated Complaint: "JUST DONT FEEL RIGHT", ?AFIB PER PT Source: patient, old records Exam Limitations: no limitations Vital Signs & Intake/Output Vital Signs & Intake/Output Vital Signs Date Time Temp Pulse Resp B/P B/P Pulse O2 O2 Flow FiO2 Mean Ox Delivery Rate 10/13 1152 98.2 85 14 172/89 97 Room Air 10/13 0949 98.9 87 18 142/82 96 Room Air Allergies Coded Allergies: NSAIDS (Non-Steroidal Anti-Inflamma ("SPOTTING" 05/29/16) Sulfa (Sulfonamide Antibiotics) (RASH 05/29/16) carbidopa (From Sinemet) (FACE SWELLS 05/29/16) gabapentin (UNKNOWN PER PT 05/29/16) levodopa (From Sinemet) (FACE SWELLS 05/29/16) Reconcile Medications Aspirin (Aspirin*) 81 MG TAB.CHEW 1 TAB PO DAILY HEART HEALTH (Reported) Cholecalciferol (Vitamin D3) (Vitamin D3) 1,000 UNIT CAPSULE 1 CAP PO DAILY SUPPLEMENT (Reported) Diltiazem HCl (Cardizem Cd) 240 MG CAP.ER.24H 1 CAP PO DAILY A FIB (Reported) Esomeprazole Magnesium (Nexium) 20 MG CAPSULE.DR 1 CAP PO DAILY GI (Reported) Ferrous Sulfate 325 MG (65 MG IRON) TABLET 1 TAB PO DAILY SUPPLEMENT ( Reported) Furosemide (Lasix) 40 MG TABLET 1 TAB PO DAILY WATER RETENTION (Reported) Magnesium Oxide (Magnesium) 500 MG CAPSULE 1 CAP PO DAILY SUPPLEMENT ( Reported) Metoprolol Tartrate (Lopressor) 100 MG TABLET 1 TAB PO BID BP (Reported) Potassium Chloride (Klor-Con M10) 10 MEQ TAB.ER.PRT 1 TAB PO DAILY SUPPLEMENT (Reported) Rivaroxaban (Xarelto) 20 MG TABLET 1 TAB PO QPM BLOOD THINNER (Reported) with food Triage Note: Pt presents to ER c/o of feeling weak and fatigued x 1 week. Pt states she has been having cold sweats and this usually occurs when she is in afib. Pt denies chest pain or palpitations. Pt denies SOB. Pt med hx of afib and htn. Pt to EKG alcove on arrival for EKG Triage Nurses Notes Reviewed? yes Onset: Gradual Duration: week(s): (1), constant Timing: recent history Quality/Severity: mild, moderate Radiation: no radiation Activities at Onset: none Prior Chest Pain/Card Workup: similar sx Nitro Today/Relief: no nitro taken today Aspirin Today: 81 mg x 1 Associated Symptoms: malaise HPI: 81 Year old female with past medical history of hypertension, atrial fibrillation on Xarelto and metoprolol for rate control, gastroesophageal reflux disease presents to ER for evaluation when one-week history of generalized malaise feeling tired and worn out intermittent sweats. She states she's had these symptoms before and was found to be in A. fib. The patient reports to intermittent exertional dyspnea, she denies chest pain palpitations leg swelling. Her asbestos textile supervisor is Dr. Yanes who she saw last week she was in A. fib at the time. She has been on diltiazem and metoprolol, xarelto, no recent changes in her medications. No fever, no cough hemoptysis abdominal pain nausea vomiting diarrhea no urinary complaints no leg swelling (SHUBHAM COLINDRES) Past History Travel History Traveled to [place] past 21 day No Medical History Any Pertinent Medical History? see below for history Neurological: NONE EENT: NONE Cardiovascular: AFIB, hypertension Respiratory: NONE Gastrointestinal: GERD Hepatic: NONE Renal: NONE Musculoskeletal: NONE Psychiatric: NONE Endocrine: NONE Blood Disorders: NONE Cancer(s): NONE DEBT COUNSELOR/Reproductive: NONE History of MRSA: No History of VRE: No History of CDIFF: No Influenza Vaccine: 12/18/15 Surgical History Surgical History: non-contributory Psychosocial History Who do you live with Patient/Self Services at Home None What is your primary language [place] Tobacco Use: Never used Family History Family History, If Any: MOTHER, ; Cause: COPD (chronic obstructive pulmonary disease). FATHER, . Hx Contributory? No (SHUBHAM COLINDRES) Review of Systems Review of Systems Constitutional: Reports: see HPI. All Other Systems: Reviewed and Negative Comments Review of systems: See HPI, All other systems negative. Constitutional, no chills no fever, no malaise HEENT: No visual changes no sore throat no congestion, Cardiovascular: No chest pain , no palpitation , no orthopnea Skin: no rashes, no change in skin Respiratory: dyspnea no cough no sputum no hemoptysis GI: No nausea no vomiting, no diarrhea, no bloating/constipation : No dysuria No hematuria Muscle skeletal: No joint pain, no joint swelling, no back pain, no neck pain, Neurologic: No numbnessno headache Psych: No stress Heme/endocrine: No bruising Immunology: No lymphadenopathy (SHUBHAM COLINDRES) Physical Exam Physical Exam General Appearance: well developed/nourished Cardiovascular: irregular Comments: Well-developed well-nourished person in no acute distress HEENT: Normal EENT exam; PERRL, EOMI, HEAD is atraumatic. moist mucous membranes. Neck: Supple, no lymphadenopathy, normal range of motion Back: Nontender, no CVA tenderness. Full range of motion Cardiovascular: Irregular rate and rhythm murmurs rubs or gallops, normal JVP Respiratory: Chest nontender.There were no bony deformities, no asymmetry. No respiratory distress. Patient speaking in full complete sentences. Breath sounds clear to auscultation bilaterally: NO W/R/R Abdomen: Soft, nontender nondistended Extremity: No edema, full range of motion of extremities Neuro: Alert oriented x3, motor sensory normal, There were no obvious focal neurologic abnormalities. Skin: No appreciable rash on exposed skin, skin is warm and dry. Psych: Mood and affect is normal, memory and judgment is normal. Core Measures ACS in differential dx? Yes Severe Sepsis Present: No Septic Shock Present: No (SHUBHAM COLINDRES) Progress Differential Diagnosis: AMI, atrial fibrillation, CHF/pulm edema, hyperkalemia, musculoskeletal pain, myocarditis, pericarditis, pneumonia, pneumothorax, unstable angina Plan of Care: Orders Procedure Date/time Status Telemetry/Legal Aide 10/13 1004 Active Add-on Test (ER Only) 10/13 0954 Active THYROID STIMULATING HORMONE 10/13 0949 Complete TROPONIN LEVEL 10/13 0949 Complete PARTIAL THROMBOPLASTIN TIME 10/13 0949 Complete PROTHROMBIN TIME 10/13 0949 Complete MAGNESIUM 10/13 0949 Complete COMPREHENSIVE METABOLIC PANEL 10/13 0949 Complete CBC WITHOUT DIFFERENTIAL 10/13 0949 Complete EKG 10/13 0940 Active Laboratory Tests 10/13/16 0956: Anion Gap 12, Estimated GFR > 60, BUN/Creatinine Ratio 13.8, Glucose 140 H, Calcium 9.3, Magnesium 1.9, Total Bilirubin 0.7, AST 23, ALT 35, Alkaline Phosphatase 106, Troponin I < 0.01, Total Protein 6.9, Albumin 4.3, Globulin 2.6 , Albumin/Globulin Ratio 1.7, TSH 1.700, PT 14.0 H, INR 1.34 H, APTT 35, CBC w Diff NO MAN DIFF REQ, RBC 4.65, MCV 92.6, MCH 31.0, RDW 13.8, MPV 7.8, Gran % 74.4, Lymphocytes % 15.5 L, Monocytes % 7.3, Eosinophils % 2.3, Basophils % 0.5 , Absolute Granulocytes 6.9 H, Absolute Lymphocytes 1.4, Absolute Monocytes 0.7 H, Absolute Eosinophils 0.2, Absolute Basophils 0, PUBS MCHC 33.5 labs ordered, case d/w dr lake agrees with plan, pt resting in nad at this time, afib in 80s on monitor Discussed with them at length all of her lab results. Patient continues to rest in no apparent distress ambulatory with steady gait, I discussed the case with her asbestos textile supervisor Dr. Yanes he advised that the patient WITH him this week the patient feels comfortable with this plan she's been A. fib in the 70s to 80s controlled I answered all of her questions. Return portions were discussed at length (KAREN HAIR,SHUBHAM) Diagnostic Imaging: Viewed by Me: Radiology Read. Discussed w/RAD: Radiology Read. Radiology Impression: PATIENT: BARBARA HAYNES PRESENT AGE: 81 PATIENT ACCOUNT NO: [id number] : 36 LOCATION: [facility] ORDERING PHYSICIAN: SHUBHAM HAIR SERVICE DATE: 10/13/16 EXAM TYPE: RAD - XRY-PORTABLE CHEST XRAY EXAMINATION: CHEST 1 VIEW CLINICAL INFORMATION: Atrial fibrillation. Lethargy. Dyspnea. COMPARISON: 05/29/2016. TECHNIQUE: An AP view of the chest is provided. FINDINGS: The cardiac silhouette is enlarged, but stable. The mediastinal and hilar contours are unremarkable. There are neither pleural effusions nor pneumothoraces. There are no consolidations. The osseous structures are unremarkable. IMPRESSION: No evidence for acute disease. Stable cardiomegaly. DICTATED BY: CARLITA ZAPATA MD DATE/TIME DICTATED:10/13/161032 MD PEDIATRIC ALLERGIST:MARIELLE DATE/TIME TRANSCRIBED:10/13/161032 CONFIDENTIAL, DO NOT COPY WITHOUT APPROPRIATE AUTHORIZATION. <Electronically signed in Other Vendor System> SIGNED BY: CARLITA ZAPATA MD 10/13/16 1040 Initial ED EKG: afib at 80, nonspecific st seg changes, normal axis Prior EKG: unchanged (05/29/16) Rhythm Strip: atrial fibrillation (SHUBHAM COLINDRES) Departure Departure Time of Disposition: 1143 Disposition: HOME OR SELF CARE Condition: Stable Clinical Impression Primary Impression: Afib Referrals: REVA SCHMITT,KRZYSZTOF Zamarripa (PCP/Family) STEPHANIE YANES MD Additional Instructions: Follow-up with your asbestos textile supervisor today to make an appointment for later this week. return to ER with any concerns as discussed Departure Forms: Customer Survey General Discharge Information (SHUBHAM COLINDRES) PA/TRANSFER DRIVER Co-Sign Statement Statement: ED Attending supervision documentation- x I saw and evaluated the patient. I have also reviewed all the pertinent lab results and diagnostic results. I agree with the findings and the plan of care as documented in the PA's/TRANSFER DRIVER's documentation. [] I have reviewed the ED Record and agree with the PA's/TRANSFER DRIVER's documentation. [] Additions or exceptions (if any) to the PAs/TRANSFER DRIVER's note and plan are summarized below: [] (LEIGHA SCHMITT,CATHY) Critical Care Note Critical Care Note Critical Care Time: non-applicable (SHUBHAM COLINDRES)
[2016-10-13 10:09] LABS: ABSOLUTE BASOPHIL COUNT 0 /CUMM (0.0-0.2); ABSOLUTE EOSINOPHIL COUNT 0.2 /CUMM (0.0-0.7); ABSOLUTE GRANULOCYTE CT 6.9 /CUMM (1.4-6.5); ABSOLUTE LYMPH COUNT 1.4 /CUMM (1.2-3.4); ABSOLUTE MONOCYTE COUNT 0.7 /CUMM (0.10-0.60); BASOPHIL % 0.5 % (0.0-2.0); EOSINOPHIL % 2.3 % (0-5); GRANULOCYTE % 74.4 % (42.2-75.2); MEAN CORPUSCULAR HGB CONC 33.5 G/DL (33.0-37.0); MEAN CORPUSCULAR VOLUME 92.6 FL (81.0-99.0); MEAN PLATELET VOLUME 7.8 FL (7.4-10.4); PLATELET COUNT 336 /CUMM (130-400); RBC DISTRIBUTION WIDTH 13.8 % (11.5-14.5); RED BLOOD CELL CT 4.65 /CUMM (4.20-5.40); WHITE BLOOD CELL COUNT 9.2 /CUMM (4.8-10.8)
[2016-10-13 10:20] LABS: PTT 35 SEC (25-37)
[2016-10-13] MEDS ORDERED: ASPIRIN81 M4 PO (10:35)
--- NOTE | 2016-10-13 10:40 | RADIOLOGY REPORT ---
EXAMINATION: CHEST 1 VIEW CLINICAL INFORMATION: Atrial fibrillation. Lethargy. Dyspnea. COMPARISON: 05/29/2016. TECHNIQUE: An AP view of the chest is provided. FINDINGS: The cardiac silhouette is enlarged, but stable. The mediastinal and hilar contours are unremarkable. There are neither pleural effusions nor pneumothoraces. There are no consolidations. The osseous structures are unremarkable. IMPRESSION: No evidence for acute disease. Stable cardiomegaly.
[2016-10-13 11:52] VITALS: BP 172/89
== END 2016-10-13 11:52 ==
LOC: ERH 09:39
PROVIDERS: Physician Assistant Medical
DX: I48.91 Unspecified atrial fibrillation (principal); R06.00 Dyspnea, unspecified; I10 Essential (primary) hypertension
CPT/HCPCS: 93005; 93010